=== PATIENT | male | born 1960 | race Caucasian/White ===

== ENCOUNTER 2024-06-12 19:36 | Inpatient (IN) | payer OTHER ==
[~2024-06-12] VITALS: Ht 170.2 cm; Wt 89.4 kg
[2024-06-12 19:41] VITALS: BP_SYST 133; PULSE 79; RESP 20; TEMP 98; O2SAT 98
[2024-06-12 20:47] LABS: BASOPHILS % (AUTO) 0.4 % (0.0-2.0); EOSINOPHILS # (AUTO) 0.7 K/uL (0.0-0.4); EOSINOPHILS % (AUTO) 7.9 % (0.0-4.0); HEMATOCRIT 41.3 % (36-54); HEMOGLOBIN 13.4 g/dL (14.0-18.0); LYMPHOCYTES # (AUTO) 1.9 K/uL (1.0-5.5); LYMPHOCYTES % (AUTO) 22.2 % (20.5-51.5); MEAN CORPUSCULAR HEMOGLOBIN 26 pg (27-31); MEAN CORPUSCULAR HGB CONC 33 % (32-36); MEAN CORPUSCULAR VOLUME 80 fL (79.0-98.0); MONOCYTES # (AUTO) 0.5 K/uL (0.0-1.0); MONOCYTES % (AUTO) 5.4 % (1.7-9.3); NEUTROPHILS # (AUTO) 5.4 K/uL (1.8-7.7); NEUTROPHILS % (AUTO) 64.1 % (40.0-70.0); PLATELET COUNT (AUTO) 458 K/uL (130-430); RED BLOOD CELL COUNT(AUTO) 5.18 MIL/uL (4.2-6.2); RED CELL DISTRIBUTION WIDTH 17.4 % (9.0-15.0); WHITE BLOOD COUNT (AUTO) 8.5 K/uL (4.8-10.8)
[2024-06-12 21:07] LABS: ALBUMIN 3.5 g/dL (3.4-4.8); BILIRUBIN,DIRECT 0.1 mg/dL (0.0-0.3); CALCIUM 9.9 mg/dL (8.4-11.0); CREATININE 1.23 mg/dL (0.55-1.30); POTASSIUM 4.4 mmol/L (3.5-5.1); TOTAL BILIRUBIN 0.3 mg/dL (0.0-1.0); TOTAL PROTEIN, SERUM 8.5 g/dL (6.4-8.3)
[2024-06-12 22:20] LABS: BILIRUBIN,URINE NEGATIVE (NEGATIVE); BLOOD, URINE 3+ (NEGATIVE); CLARITY/URINE CLOUDY (CLEAR); COLOR,URINE YELLOW (YELLOW); GLUCOSE,URINE NEGATIVE (NEGATIVE); KETONES,URINE NEGATIVE (NEGATIVE); LEUKOCYTE ESTERASE ,URINE 3+ (NEGATIVE); PH,URINE 6.5 (5.0-8.0); PROTEIN URINE 3+ (NEGATIVE)
[2024-06-12 22:21] LABS: BACTERIA,URINE MANY /HPF (None Seen); NITRITE, URINE POSITIVE (NEGATIVE); UROBILINOGEN,URINE 0.2 (0.2-1.0); WBC,URINE >100 /HPF (0-3)
[2024-06-12 22:22] LABS: MUCUS,URINE None Seen /LPF (None Seen)
[2024-06-12] MEDS: NACL 0.9% 1,000 ML IV ONE (22:32)
[2024-06-12] MEDS: cefTRIAXone 1 GM in D5W 50 ML IV ONE (22:35)
[2024-06-12] MEDS ORDERED: cefTRIAXone 1 GM VIAL ONE (22:37)
[2024-06-12] MEDS ORDERED: BUDE0.5A4 IH (23:28)
[2024-06-12] MEDS ORDERED: COLL100 PO (23:31)
[2024-06-12] MEDS ORDERED: CRAN450T9 PO (23:31)
[2024-06-12] MEDS ORDERED: CELE200C PO (23:31)
[2024-06-12] MEDS ORDERED: MELA1TAB29 PO (23:31)
[2024-06-12] MEDS ORDERED: TOPXL100 PO (23:33)
[2024-06-12] MEDS ORDERED: METF-1069 PO (23:33)
[2024-06-12] MEDS ORDERED: NITR1PAT76 TD (23:33)
[2024-06-13] VITALS (9 sets, daily range): BP systolic 104–139; PULSE 70–104; RESP 16–18; TEMP 97.5–98.1; O2SAT 97–100
[2024-06-13] MEDS ORDERED: LORazepam 2 MG/ML VIAL IVP PRN (13:15)
[2024-06-13] MEDS ORDERED: NALOXONE HCL 0.4 MG/ML AMP (NARCAN) IVP PRN ×2 (13:15)
[2024-06-13] MEDS ORDERED: ONDANSETRON HCL 4 MG/2 ML VIAL IVP PRN (13:15)
[2024-06-13] MEDS ORDERED: ACETAMINOPHEN 325 MG TABLET PO PRN (13:45)
[2024-06-13] MEDS ORDERED: METOPROLOL SUCCINATE 50 MG TAB.SR.24H (TOPROL XL) PO ONE (14:15)
[2024-06-13] MEDS ORDERED: METF-379 PO (14:28)
[2024-06-13] MEDS ORDERED: NITR0.4T47 SL (14:28)
[2024-06-13] MEDS ORDERED: METO100T14 PO (14:28)
[2024-06-13] MEDS: metFORMIN HCL 500 MG TABLET PO ONE (15:12)
[2024-06-13] MEDS: METOPROLOL TARTRATE 50 MG TABLET PO ONE (15:14)
[2024-06-13] MEDS: BUDESONIDE 0.5 MG/2 ML AMPUL.NEB IH SCH (19:58)
[2024-06-13] MEDS: metFORMIN HCL 500 MG TABLET PO SCH (21:27)
[2024-06-13] MEDS: MELATONIN 3 MG TABLET PO SCH (21:28)
[2024-06-13] MEDS: METOPROLOL TARTRATE 50 MG TABLET PO SCH (21:29)
[2024-06-14] VITALS (8 sets, daily range): BP systolic 112–136; PULSE 62–80; RESP 16–18; TEMP 97.4–98.1; O2SAT 96–98
[2024-06-14 06:02] LABS: BASOPHILS % (AUTO) 0.7 % (0.0-2.0); EOSINOPHILS # (AUTO) 0.8 K/uL (0.0-0.4); HEMATOCRIT 39.5 % (36-54); HEMOGLOBIN 12.7 g/dL (14.0-18.0); LYMPHOCYTES % (AUTO) 27.3 % (20.5-51.5); MEAN CORPUSCULAR HEMOGLOBIN 26 pg (27-31); MEAN CORPUSCULAR HGB CONC 32 % (32-36); MEAN CORPUSCULAR VOLUME 79 fL (79.0-98.0); MONOCYTES # (AUTO) 0.5 K/uL (0.0-1.0); MONOCYTES % (AUTO) 6.9 % (1.7-9.3); NEUTROPHILS % (AUTO) 54.1 % (40.0-70.0); PLATELET COUNT (AUTO) 461 K/uL (130-430); RED BLOOD CELL COUNT(AUTO) 4.97 MIL/uL (4.2-6.2); WHITE BLOOD COUNT (AUTO) 7.3 K/uL (4.8-10.8)
[2024-06-14 06:17] LABS: ALBUMIN 3.1 g/dL (3.4-4.8); CALCIUM 9.2 mg/dL (8.4-11.0); CREATININE 1.03 mg/dL (0.55-1.30); POTASSIUM 4.7 mmol/L (3.5-5.1); TOTAL BILIRUBIN 0.3 mg/dL (0.0-1.0); TOTAL PROTEIN, SERUM 7.9 g/dL (6.4-8.3)
[2024-06-14] MEDS: DOCUSATE SODIUM 100 MG/10 ML UDC PO SCH (08:50)
[2024-06-14] MEDS: HYDROcodone/ACETAMIN 5-325 MG TAB (NORCO/ VICODIN) PO PRN (08:54)
[2024-06-14] MEDS: CELECOXIB 200 MG CAPSULE PO SCH (08:54)
[2024-06-14] MEDS ORDERED: NITROGLYCERIN 0.4 MG/HR PATCH.TD24 TD SCH (09:00)
[2024-06-14] MEDS: cefTRIAXone 1 GM in D5W 50 ML IV SCH (10:20)
[2024-06-14] MEDS: VANCOMYCIN HCL 1,000 MG in NS 250 ML IV SCH (21:13)
[2024-06-14] MEDS: HYDROcodone/ACETAMIN 10-325 MG TAB PO PRN (21:21)
[2024-06-15] VITALS (9 sets, daily range): BP systolic 105–129; PULSE 68–95; RESP 14–18; TEMP 97.7–98.6; O2SAT 97–100
[2024-06-15 07:24] LABS: BASOPHILS % (AUTO) 0.4 % (0.0-2.0); EOSINOPHILS # (AUTO) 0.6 K/uL (0.0-0.4); EOSINOPHILS % (AUTO) 9.3 % (0.0-4.0); HEMATOCRIT 33.8 % (36-54); HEMOGLOBIN 10.7 g/dL (14.0-18.0); LYMPHOCYTES # (AUTO) 1.8 K/uL (1.0-5.5); LYMPHOCYTES % (AUTO) 30.3 % (20.5-51.5); MEAN CORPUSCULAR HEMOGLOBIN 25 pg (27-31); MEAN CORPUSCULAR HGB CONC 32 % (32-36); MEAN CORPUSCULAR VOLUME 80 fL (79.0-98.0); MONOCYTES # (AUTO) 0.4 K/uL (0.0-1.0); MONOCYTES % (AUTO) 7.2 % (1.7-9.3); NEUTROPHILS # (AUTO) 3.2 K/uL (1.8-7.7); NEUTROPHILS % (AUTO) 52.8 % (40.0-70.0); PLATELET COUNT (AUTO) 346 K/uL (130-430); RED BLOOD CELL COUNT(AUTO) 4.24 MIL/uL (4.2-6.2); RED CELL DISTRIBUTION WIDTH 17.4 % (9.0-15.0)
[2024-06-15 07:41] LABS: CALCIUM 8.7 mg/dL (8.4-11.0); CREATININE 0.87 mg/dL (0.55-1.30); POTASSIUM 4.4 mmol/L (3.5-5.1)
[2024-06-15 08:06] LABS: ERYTHROCYTE SEDIMENTATION RATE 89 MM/HR (0-15)
[2024-06-15] MEDS: ACETAMINOPHEN 325 MG TABLET PO PRN (20:16)
[2024-06-15] MEDS: NYSTATIN 30 GM TOPICAL CREAM TP SCH (20:31)
[2024-06-15] MEDS: BALSAM PERU/CASTOR OIL 56.7 GM OINT...G. TP SCH (20:32)
[2024-06-15] MEDS ORDERED: ANTIFUNGAL CLEAR OINTMENT TP SCH (21:00)
[2024-06-16] VITALS (10 sets, daily range): BP systolic 126–151; PULSE 64–85; RESP 16–19; TEMP 97.5–98.6; O2SAT 96–100
[2024-06-16 08:39] LABS: BASOPHILS % (AUTO) 0.3 % (0.0-2.0); EOSINOPHILS # (AUTO) 0.6 K/uL (0.0-0.4); EOSINOPHILS % (AUTO) 9.5 % (0.0-4.0); HEMATOCRIT 36.1 % (36-54); HEMOGLOBIN 11.5 g/dL (14.0-18.0); LYMPHOCYTES % (AUTO) 16.2 % (20.5-51.5); MEAN CORPUSCULAR HEMOGLOBIN 25 pg (27-31); MEAN CORPUSCULAR HGB CONC 32 % (32-36); MEAN CORPUSCULAR VOLUME 80 fL (79.0-98.0); MONOCYTES # (AUTO) 0.4 K/uL (0.0-1.0); MONOCYTES % (AUTO) 6.2 % (1.7-9.3); NEUTROPHILS # (AUTO) 4.2 K/uL (1.8-7.7); NEUTROPHILS % (AUTO) 67.8 % (40.0-70.0); PLATELET COUNT (AUTO) 355 K/uL (130-430); RED BLOOD CELL COUNT(AUTO) 4.54 MIL/uL (4.2-6.2); RED CELL DISTRIBUTION WIDTH 17.5 % (9.0-15.0); WHITE BLOOD COUNT (AUTO) 6.1 K/uL (4.8-10.8)
[2024-06-16 08:44] LABS: ALBUMIN 2.8 g/dL (3.4-4.8); CALCIUM 8.6 mg/dL (8.4-11.0); CREATININE 0.8 mg/dL (0.55-1.30); ERYTHROCYTE SEDIMENTATION RATE 106 MM/HR (0-15); POTASSIUM 4.2 mmol/L (3.5-5.1); TOTAL BILIRUBIN 0.3 mg/dL (0.0-1.0); TOTAL PROTEIN, SERUM 7.1 g/dL (6.4-8.3)
[2024-06-16] MEDS ORDERED: BALSAM PERU/CASTOR OIL 56.7 GM OINT...G. TP SCH (09:00)
[2024-06-17 00:35] VITALS: BP_SYST 146; PULSE 76; RESP 16; TEMP 98; O2SAT 96
[2024-06-17 07:20] LABS: CALCIUM 9.2 mg/dL (8.4-11.0); CREATININE 0.97 mg/dL (0.55-1.30); POTASSIUM 4.4 mmol/L (3.5-5.1)
[2024-06-17 07:33] VITALS: O2SAT 98
[2024-06-17] MEDS: cefTRIAXone 2 GM in D5W 50 ML IV SCH (08:25)
[2024-06-17 08:30] VITALS: BP_SYST 96; PULSE 97; RESP 17; TEMP 97.5; O2SAT 96
[2024-06-17 08:54] LABS: BASOPHILS % (AUTO) 0.5 % (0.0-2.0); EOSINOPHILS # (AUTO) 0.6 K/uL (0.0-0.4); EOSINOPHILS % (AUTO) 10.2 % (0.0-4.0); HEMATOCRIT 35.7 % (36-54); HEMOGLOBIN 11.4 g/dL (14.0-18.0); LYMPHOCYTES # (AUTO) 1.4 K/uL (1.0-5.5); LYMPHOCYTES % (AUTO) 22.4 % (20.5-51.5); MEAN CORPUSCULAR HEMOGLOBIN 26 pg (27-31); MEAN CORPUSCULAR HGB CONC 32 % (32-36); MEAN CORPUSCULAR VOLUME 80 fL (79.0-98.0); MONOCYTES # (AUTO) 0.4 K/uL (0.0-1.0); MONOCYTES % (AUTO) 6.7 % (1.7-9.3); NEUTROPHILS # (AUTO) 3.6 K/uL (1.8-7.7); NEUTROPHILS % (AUTO) 60.2 % (40.0-70.0); PLATELET COUNT (AUTO) 364 K/uL (130-430); RED BLOOD CELL COUNT(AUTO) 4.47 MIL/uL (4.2-6.2); RED CELL DISTRIBUTION WIDTH 17.7 % (9.0-15.0)
[2024-06-17 09:02] LABS: ERYTHROCYTE SEDIMENTATION RATE 101 MM/HR (0-15)
[2024-06-17] MEDS ORDERED: ROCPM1 IV (10:02)
[2024-06-17 14:30] VITALS: BP_SYST 107; PULSE 67; RESP 18; TEMP 97.8; O2SAT 96
[2024-06-17 17:10] VITALS: BP_SYST 107; PULSE 67; RESP 18; TEMP 97.8; O2SAT 96
[2024-06-17 17:15] VITALS: BP_SYST 151; PULSE 89; RESP 20; TEMP 97.7; O2SAT 98
== END 2024-06-17 18:53 | DRG 466 ==
LOC: SED 19:36 → STU 22:06 → SMU 06-14 09:07
PROVIDERS: ADMIT Preventive Medicine Preventive Medicine/Occupational Environmental Medicine; ATTEND Preventive Medicine Preventive Medicine/Occupational Environmental Medicine
PROC: 0T2BX0Z Change Drainage Device in Bladder, External Approach (ICD-10-PCS; principal; 2024-06-12)
DX: T83.038A Leakage of other urinary catheter, initial encounter (principal); E87.1 Hypo-osmolality and hyponatremia; E88.09 Other disorders of plasma-protein metabolism, not elsewhere classified; N39.0 Urinary tract infection, site not specified; E11.65 Type 2 diabetes mellitus with hyperglycemia; B95.5 Unspecified streptococcus as the cause of diseases classified elsewhere; B96.20 Unspecified Escherichia coli [E. coli] as the cause of diseases classified elsewhere; B96.89 Other specified bacterial agents as the cause of diseases classified elsewhere; D64.9 Anemia, unspecified; D75.839 Thrombocytosis, unspecified; E86.0 Dehydration; N31.9 Neuromuscular dysfunction of bladder, unspecified; Y83.8 Other surgical procedures as the cause of abnormal reaction of the patient, or of later complication, without mention of misadventure at the time of the procedure; Y92.89 Other specified places as the place of occurrence of the external cause; Z79.899 Other long term (current) drug therapy; Z88.8 Allergy status to other drugs, medicaments and biological substances
CPT/HCPCS: 36415; 76770; 80048; 80053; 80076; 80202; 81000; 81001; 81015; 83690; 85025; 85651; 87040; 87081; 87086; 87186; 93005; 94070; 94640; 94664; 94760; 96365; 99285; A5061; G0378; J0696; J3370; J7050; J7060; J7626

== ENCOUNTER 2024-07-19 21:36 | Inpatient (IN) | payer OTHER ==
[~2024-07-19] VITALS: Ht 175.3 cm; Wt 92.5 kg
[~2024-07-19 21:36] MED LIST: BUDE0.5A4 IH; CELE200C PO; COLL100 PO; CRAN450T9 PO; MELA1TAB29 PO; METF-379 PO; METO100T14 PO; NITR0.4T47 SL; ROCPM1 IV
[2024-07-19 21:42] VITALS: BP_SYST 103; PULSE 97; RESP 18; TEMP 97.7; O2SAT 99
[2024-07-19] MEDS: NACL 0.9% 1,000 ML IV ONE (23:17)
[2024-07-20] VITALS (7 sets, daily range): BP systolic 105–122; PULSE 95–154; RESP 17–20; TEMP 98–99.5; O2SAT 97–99
[2024-07-20 00:57] LABS: BILIRUBIN,URINE NEGATIVE (NEGATIVE); BLOOD, URINE 2+ (NEGATIVE); CLARITY/URINE SL CLOUDY (CLEAR); COLOR,URINE YELLOW (YELLOW); GLUCOSE,URINE NEGATIVE (NEGATIVE); KETONES,URINE NEGATIVE (NEGATIVE); LEUKOCYTE ESTERASE ,URINE 2+ (NEGATIVE); NITRITE, URINE POSITIVE (NEGATIVE); PROTEIN URINE 1+ (NEGATIVE); UROBILINOGEN,URINE 0.2 (0.2-1.0)
[2024-07-20 01:15] LABS: BACTERIA,URINE MANY /HPF (None Seen); WBC,URINE >100 /HPF (0-3)
[2024-07-20 01:46] LABS: BASOPHILS % (AUTO) 0.1 % (0.0-2.0); EOSINOPHILS # (AUTO) 0.2 K/uL (0.0-0.4); EOSINOPHILS % (AUTO) 0.6 % (0.0-4.0); HEMATOCRIT 36.6 % (36-54); HEMOGLOBIN 11.9 g/dL (14.0-18.0); LYMPHOCYTES # (AUTO) 1.7 K/uL (1.0-5.5); LYMPHOCYTES % (AUTO) 6.2 % (20.5-51.5); MEAN CORPUSCULAR HEMOGLOBIN 25 pg (27-31); MEAN CORPUSCULAR HGB CONC 33 % (32-36); MEAN CORPUSCULAR VOLUME 77 fL (79.0-98.0); MONOCYTES # (AUTO) 0.9 K/uL (0.0-1.0); MONOCYTES % (AUTO) 3.3 % (1.7-9.3); NEUTROPHILS # (AUTO) 24.3 K/uL (1.8-7.7); NEUTROPHILS % (AUTO) 89.8 % (40.0-70.0); PLATELET COUNT (AUTO) 344 K/uL (130-430); RED BLOOD CELL COUNT(AUTO) 4.73 MIL/uL (4.2-6.2); RED CELL DISTRIBUTION WIDTH 17.6 % (9.0-15.0)
[2024-07-20 02:01] LABS: ALBUMIN 2.4 g/dL (3.4-4.8); BILIRUBIN,DIRECT 0.2 mg/dL (0.0-0.3); CREATININE 1.46 mg/dL (0.55-1.30); POTASSIUM 3.8 mmol/L (3.5-5.1); TOTAL BILIRUBIN 0.6 mg/dL (0.0-1.0); TOTAL PROTEIN, SERUM 6.5 g/dL (6.4-8.3)
[2024-07-20] MEDS ORDERED: IVER3TAB2 PO (05:41)
[2024-07-20] MEDS ORDERED: ACET325C6 PO (05:41)
[2024-07-20] MEDS ORDERED: BUDE0.5A INH (05:41)
[2024-07-20] MEDS: NACL 0.9% 1,500 ML IV ONE (05:49)
[2024-07-20] MEDS: cefTRIAXone 1 GM IVPB PREMIX 50 ML IV ONE (05:50)
[2024-07-20] MEDS: D5/0.45 NS 1,000 ML IV SCH (07:37)
[2024-07-20] MEDS ORDERED: LORazepam 2 MG/ML VIAL IVP PRN (10:15)
[2024-07-20] MEDS ORDERED: NON-FORMULARY MEDICATION (Acetaminophen (Tylenol) 2 CAP) PO SCH (10:15)
[2024-07-20] MEDS ORDERED: ACETAMINOPHEN 325 MG TABLET PO PRN (10:15)
[2024-07-20] MEDS ORDERED: NITROGLYCERIN 0.4 MG TAB.SUBL SL SCH (10:15)
[2024-07-20] MEDS ORDERED: ONDANSETRON HCL 4 MG/2 ML VIAL IVP PRN (10:15)
[2024-07-20] MEDS ORDERED: NALOXONE HCL 0.4 MG/ML AMP (NARCAN) IVP PRN ×2 (10:15)
[2024-07-20] MEDS ORDERED: HYDROcodone/ACETAMIN 10-325 MG TAB PO PRN (10:15)
[2024-07-20 10:58] LABS: BASOPHILS % (AUTO) 0.2 % (0.0-2.0); EOSINOPHILS # (AUTO) 0.3 K/uL (0.0-0.4); EOSINOPHILS % (AUTO) 1.5 % (0.0-4.0); HEMATOCRIT 35.1 % (36-54); HEMOGLOBIN 11.1 g/dL (14.0-18.0); LYMPHOCYTES # (AUTO) 0.9 K/uL (1.0-5.5); LYMPHOCYTES % (AUTO) 5.2 % (20.5-51.5); MEAN CORPUSCULAR HEMOGLOBIN 25 pg (27-31); MEAN CORPUSCULAR HGB CONC 32 % (32-36); MEAN CORPUSCULAR VOLUME 79 fL (79.0-98.0); MONOCYTES # (AUTO) 0.4 K/uL (0.0-1.0); MONOCYTES % (AUTO) 2.2 % (1.7-9.3); NEUTROPHILS # (AUTO) 15.5 K/uL (1.8-7.7); NEUTROPHILS % (AUTO) 90.9 % (40.0-70.0); PLATELET COUNT (AUTO) 297 K/uL (130-430); RED BLOOD CELL COUNT(AUTO) 4.47 MIL/uL (4.2-6.2); RED CELL DISTRIBUTION WIDTH 17.7 % (9.0-15.0)
[2024-07-20 11:06] LABS: CALCIUM 8.3 mg/dL (8.4-11.0); CREATININE 1.25 mg/dL (0.55-1.30); POTASSIUM 3.7 mmol/L (3.5-5.1)
[2024-07-20] MEDS: CELECOXIB 200 MG CAPSULE PO ONE (13:05)
[2024-07-20] MEDS: DOCUSATE SODIUM 100 MG/10 ML UDC PO ONE (13:06)
[2024-07-20] MEDS: INSULIN REGULAR, HUMAN 100 UNITS/ML, 3 ML VIAL (humuLIN R) SUBCUT PRN (13:11)
[2024-07-20] MEDS: METOPROLOL TARTRATE 50 MG TABLET PO SCH (21:00)
[2024-07-20] MEDS ORDERED: NON-FORMULARY MEDICATION (Melatonin/Pyridoxine HCl (B6) (Melatonin 3 mg Tablet) 1 TAB) PO SCH (21:00)
[2024-07-20] MEDS ORDERED: NON-FORMULARY MEDICATION (Metoprolol Tartrate 100 MG) PO SCH (21:00)
[2024-07-20] MEDS: BUDESONIDE 0.5 MG/2 ML AMPUL.NEB INH SCH (21:01)
[2024-07-20] MEDS: metFORMIN HCL 500 MG TABLET PO SCH (21:42)
[2024-07-20] MEDS: ADENOSINE 6MG/2ML VIAL IVP ONE (21:53)
[2024-07-21] VITALS (8 sets, daily range): BP systolic 97–129; PULSE 60–129; RESP 16–19; TEMP 97.5–99.5; O2SAT 95–99
[2024-07-21] MEDS: cefTRIAXone 1 GM IVPB PREMIX 50 ML IV SCH (05:32)
[2024-07-21 07:45] LABS: BASOPHILS % (AUTO) 0.2 % (0.0-2.0); EOSINOPHILS # (AUTO) 0.2 K/uL (0.0-0.4); EOSINOPHILS % (AUTO) 1.8 % (0.0-4.0); HEMATOCRIT 33.7 % (36-54); HEMOGLOBIN 10.6 g/dL (14.0-18.0); LYMPHOCYTES # (AUTO) 1.4 K/uL (1.0-5.5); LYMPHOCYTES % (AUTO) 10.8 % (20.5-51.5); MEAN CORPUSCULAR HEMOGLOBIN 25 pg (27-31); MEAN CORPUSCULAR HGB CONC 32 % (32-36); MEAN CORPUSCULAR VOLUME 78 fL (79.0-98.0); MONOCYTES # (AUTO) 0.7 K/uL (0.0-1.0); MONOCYTES % (AUTO) 5.4 % (1.7-9.3); NEUTROPHILS # (AUTO) 10.3 K/uL (1.8-7.7); NEUTROPHILS % (AUTO) 81.8 % (40.0-70.0); PLATELET COUNT (AUTO) 291 K/uL (130-430); RED BLOOD CELL COUNT(AUTO) 4.32 MIL/uL (4.2-6.2); RED CELL DISTRIBUTION WIDTH 17.6 % (9.0-15.0); WHITE BLOOD COUNT (AUTO) 12.6 K/uL (4.8-10.8)
[2024-07-21 08:07] LABS: ALANINE AMINOTRANSFERASE 22 U/L (12-78); ANION GAP 9 (5-15); ASPARTATE AMINOTRANSFERASE 11 U/L (10-37); CALCIUM 8.5 mg/dL (8.4-11.0); CARBON DIOXIDE 26 mmol/L (23-29); CHLORIDE 104 mmol/L (98-107); CREATININE 0.97 mg/dL (0.55-1.30); GFR AFRICAN AMERICAN 101 mL/min (>90); GLUCOSE 200 mg/dL (74-106); POTASSIUM 3.9 mmol/L (3.5-5.1); SODIUM SERUM 139 mmol/L (136-145); THYROID STIMULATING HORMONE 2.02 uIu/mL (0.34-4.82); TOTAL BILIRUBIN 0.4 mg/dL (0.0-1.0); TOTAL PROTEIN, SERUM 6.1 g/dL (6.4-8.3); UREA NITROGEN, BLOOD 18 mg/dL (8-21)
[2024-07-21 08:19] LABS: GFR NON AFRICAN-AMERICAN 84 mL/min (>90)
[2024-07-21] MEDS: DOCUSATE SODIUM 100 MG/10 ML UDC PO SCH (09:00)
[2024-07-21] MEDS: CELECOXIB 200 MG CAPSULE PO SCH (09:33)
[2024-07-21] MEDS: HYDROcodone/ACETAMIN 5-325 MG TAB (NORCO/ VICODIN) PO PRN (09:33)
[2024-07-21] MEDS: PANTOPRAZOLE SODIUM 40 MG TAB PO ONE (10:51)
[2024-07-21] MEDS: METOPROLOL TARTRATE 50 MG TABLET PO SCH (22:08)
[2024-07-21] MEDS: APIXABAN 2.5 MG TABLET PO SCH (22:14)
[2024-07-21] MEDS: traZODone HCL 50 MG TABLET (DESYREL) PO PRN (22:15)
[2024-07-22 00:45] VITALS: BP_SYST 160; PULSE 77; RESP 19; TEMP 97.5; O2SAT 95
[2024-07-22 07:19] LABS: BASOPHILS % (AUTO) 0.4 % (0.0-2.0); EOSINOPHILS # (AUTO) 0.5 K/uL (0.0-0.4); EOSINOPHILS % (AUTO) 7.6 % (0.0-4.0); HEMATOCRIT 34.6 % (36-54); HEMOGLOBIN 11.1 g/dL (14.0-18.0); LYMPHOCYTES % (AUTO) 14.9 % (20.5-51.5); MEAN CORPUSCULAR HEMOGLOBIN 25 pg (27-31); MEAN CORPUSCULAR HGB CONC 32 % (32-36); MEAN CORPUSCULAR VOLUME 77 fL (79.0-98.0); MONOCYTES # (AUTO) 0.4 K/uL (0.0-1.0); MONOCYTES % (AUTO) 6.4 % (1.7-9.3); NEUTROPHILS # (AUTO) 4.9 K/uL (1.8-7.7); NEUTROPHILS % (AUTO) 70.7 % (40.0-70.0); PLATELET COUNT (AUTO) 266 K/uL (130-430); RED BLOOD CELL COUNT(AUTO) 4.48 MIL/uL (4.2-6.2); RED CELL DISTRIBUTION WIDTH 17.5 % (9.0-15.0); WHITE BLOOD COUNT (AUTO) 6.9 K/uL (4.8-10.8)
[2024-07-22 07:20] LABS: CALCIUM 8.4 mg/dL (8.4-11.0); CREATININE 0.88 mg/dL (0.55-1.30); POTASSIUM 4.2 mmol/L (3.5-5.1)
[2024-07-22 07:45] LABS: ERYTHROCYTE SEDIMENTATION RATE 98 MM/HR (0-15)
[2024-07-22 07:55] VITALS: O2SAT 97
[2024-07-22 08:00] VITALS: BP_SYST 147; PULSE 96; RESP 18; TEMP 98; O2SAT 96; O2SAT 99
[2024-07-22] MEDS: PANTOPRAZOLE SODIUM 40 MG TAB PO SCH (10:33)
[2024-07-22 11:08] VITALS: BP_SYST 163; PULSE 92; RESP 16; TEMP 97.2; O2SAT 98
[2024-07-22] MEDS: NORMAL SALINE 5 ML DISP.SYRIN IVF SCH (14:12)
[2024-07-22 16:08] VITALS: BP_SYST 156; PULSE 61; RESP 16; TEMP 97.9; O2SAT 98
[2024-07-22 20:18] VITALS: O2SAT 95
[2024-07-23] MEDS ORDERED: lisinopriL 5 MG TABLET PO SCH (09:00)
== END 2024-07-23 23:00 | DRG 720 ==
LOC: SED 21:36 → SMU 07-20 05:37 → STU 07-20 22:34 → SMU 07-21 10:35 → UNDODISIN 07-22 23:00
PROVIDERS: ADMIT Preventive Medicine Preventive Medicine/Occupational Environmental Medicine; ATTEND Preventive Medicine Preventive Medicine/Occupational Environmental Medicine
DX: A41.9 Sepsis, unspecified organism (principal); E43 Unspecified severe protein-calorie malnutrition; E87.20 Acidosis, unspecified; G82.20 Paraplegia, unspecified; E11.21 Type 2 diabetes mellitus with diabetic nephropathy; E87.1 Hypo-osmolality and hyponatremia; E88.09 Other disorders of plasma-protein metabolism, not elsewhere classified; N39.0 Urinary tract infection, site not specified; B96.20 Unspecified Escherichia coli [E. coli] as the cause of diseases classified elsewhere; D64.9 Anemia, unspecified; E11.22 Type 2 diabetes mellitus with diabetic chronic kidney disease; T83.018A Breakdown (mechanical) of other urinary catheter, initial encounter; N20.0 Calculus of kidney; J44.9 Chronic obstructive pulmonary disease, unspecified; B96.4 Proteus (mirabilis) (morganii) as the cause of diseases classified elsewhere; Y83.8 Other surgical procedures as the cause of abnormal reaction of the patient, or of later complication, without mention of misadventure at the time of the procedure; N31.9 Neuromuscular dysfunction of bladder, unspecified; Z88.1 Allergy status to other antibiotic agents; Z88.8 Allergy status to other drugs, medicaments and biological substances; Y92.89 Other specified places as the place of occurrence of the external cause
CPT/HCPCS: 36415; 71045; 80048; 80053; 80076; 81000; 81001; 81015; 82948; 83605; 83735; 83880; 84100; 84443; 84484; 85025; 85651; 87040; 87081; 87086; 87186; 93005; 94640; 94760; 99285; G0378; J0696; J1815; J7030; J7050; J7626